=== PATIENT | male | born 1960 | race Caucasian/White ===

== ENCOUNTER 2024-05-15 08:23 | Outpatient (AMB) | payer MEDICARE, OTHER, SELFPAY ==
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
[2024-05-15 08:26] VITALS: BP 128/74; PULSE 86; O2SAT 97; BMI 27.5
== END 2024-05-15 09:29 | disposition home or self-care (01) ==
PROVIDERS: PCP Internal Medicine; Visit Provider Psychiatry & Neurology Neurology
DX: M79.604 Pain in right leg (principal); M79.605 Pain in left leg; R20.2 Paresthesia of skin; R25.2 Cramp and spasm; E11.9 Type 2 diabetes mellitus without complications
CPT/HCPCS: 99204

== ENCOUNTER → 2024-05-15 08:23 | Outpatient (BNVA) | payer MEDICARE, OTHER, SELFPAY | PROVIDERS: PCP Internal Medicine; Visit Provider Psychiatry & Neurology Neurology | DX: M79.604 Pain in right leg (principal); M79.605 Pain in left leg; R20.2 Paresthesia of skin; R25.2 Cramp and spasm; E11.9 Type 2 diabetes mellitus without complications | CPT/HCPCS: 99202 ==

== ENCOUNTER 2024-05-17 07:57 | Outpatient (REF) | payer MEDICARE, OTHER, SELFPAY ==
[2024-05-17 10:19] LABS: MANUAL DIFF FLAG NO
[2024-05-17 10:33] LABS: Basophils Percent Auto 0.4 % (0-2); Eosinophils Absolute Auto 0.1 X10*3/uL (0.0-0.4); Hematocrit 47.4 % (42.0-52.0); Hemoglobin 15.7 g/dl (14.0-18.0); Imm Gran Abs Auto 0.04 X10*3/uL (0.00-0.03); Imm Gran Pct Auto 0.5 % (0.0-0.4); Lymphocytes Absolute Auto 1.4 X10*3/uL (1.2-4.9); Lymphocytes Percent Auto 17.3 % (20-40); Mean Corpuscular HGB Conc 33.1 g/dl (31.0-36.0); Mean Corpuscular Hemoglobin 27.9 pg (27.0-33.0); Mean Corpuscular Volume 84.3 fL (80.0-98.0); Mean Platelet Volume 9.4 fL (9.4-12.4); Monocytes Absolute Auto 0.7 X10*3/uL (0.1-1.2); Monocytes Percent Auto 8.2 % (2-11); Neutrophils Absolute Auto 5.8 x10*3/uL (2.0-8.3); Neutrophils Percent Auto 72.6 % (45-73); Platelet Count 294 X10*3/uL (160-400); Red Blood Count 5.62 X10*6/uL (4.60-5.80); Red Cell Distribution Width 13.7 % (11.0-16.0)
[2024-05-17 11:03] LABS: Alanine Aminotransferase 26 U/L (0-40); Albumin Level 4.2 g/dL (3.5-5.0); Alkaline Phosphatase 51 U/L (39-117); Anion Gap 14 (12-20); Aspartate Amino Transferase 23 U/L (5-37); Bilirubin Total 0.6 mg/dL (0.0-1.0); Blood Urea Nitrogen 13 mg/dL (9-16); Calcium 9.5 mg/dL (8.4-10.2); Carbon Dioxide 23 mmol/L (22-29); Chloride 106 mmol/L (96-108); Estimated Glomerular Filt Rate > 60; Glucose Random 220 mg/dL (60-115); Potassium 4.4 mmol/L (3.3-5.1); Sodium 139 mmol/L (135-145); TSH reflex Free T4 0.59 uIU/mL (0.32-4.0); Total Protein 7.4 g/dL (6.5-8.0)
[2024-05-17 14:23] LABS: Folate 8.1 ng/mL (> or = 4.0); Vitamin B12 321 pg/mL (200-900)
[2024-05-22 15:13] LABS: Vitamin D 25-OH, D2 <4 ng/mL; Vitamin D 25-OH, D3 23 ng/mL; Vitamin D 25-OH, Total 23 ng/mL (30-100)
== END 2024-05-17 07:58 | disposition home or self-care (01) ==
LOC: HO.HMGCLDS 07:57
PROVIDERS: PCP Internal Medicine; Visit Provider Nurse Practitioner Family
DX: R20.2 Paresthesia of skin (principal); R25.2 Cramp and spasm; M79.605 Pain in left leg; M79.604 Pain in right leg
CPT/HCPCS: 36415; 80053; 82306; 82550; 82607; 82746; 84443; 85025

== ENCOUNTER 2024-06-06 07:38 | Outpatient (REF) | payer MEDICARE, OTHER, SELFPAY ==
--- NOTE | 2024-06-06 07:47 | EMG_ITS ---
PROCEDURE: Bilateral tibial and peroneal motor studies were performed. Bilateral superficial peroneal, sural, and median and lateral plantar mixed studies were performed. Tibial H reflexes were obtained and paraspinal muscles were tested with a needle. IMPRESSION: Txifgxsk-ry-czlyfd sensory and motor peripheral neuropathy with features of axonal loss and demyelination. Appropriate investigations are recommended to rule out treatable type of demyelinating neuropathy. MD FARIHA Cervantes/DEIDRE / [phone]
== END 2024-06-06 07:39 | disposition home or self-care (01) ==
LOC: HO.NEURO 07:38
PROVIDERS: PCP Internal Medicine; Visit Provider Nurse Practitioner Family
DX: R20.2 Paresthesia of skin (principal); M79.604 Pain in right leg; M79.605 Pain in left leg
CPT/HCPCS: 95886; 95913

== ENCOUNTER 2024-06-21 08:20 | Outpatient (REF) | payer MEDICARE, OTHER, SELFPAY ==
[2024-06-21 11:31] LABS: Estimated Average Glucose 183 mg/dL
[2024-06-21 11:53] LABS: Erythrocyte Sedimentation Rate 7 MM/HR (0-15)
[2024-06-21 12:37] LABS: Rheumatoid Factor < 13.0 IU/mL (<15.0)
[2024-06-21 12:38] LABS: HIV AB/AG Nonreactive (Nonreactive); HIV Num 1 0.05 S/CO (0.00-0.99)
[2024-06-21 13:10] LABS: Folate 6.4 ng/mL (> or = 4.0); Vitamin B12 442 pg/mL (200-900)
[2024-06-22 09:39] LABS: CRP High Sensitivity 0.6 mg/L
[2024-06-23 10:18] LABS: Prot Elec - Albumin 4.2 g/dL (3.8-4.8); Prot Elec - Alpha1 0.2 g/dL (0.2-0.3); Prot Elec - Beta 1 0.5 g/dL (0.4-0.6); Prot Elec - Beta 2 0.4 g/dL (0.2-0.5); Prot Elec - Total Protein 7.2 g/dL (6.1-8.1)
[2024-06-26 08:43] LABS: Methylmalonic Acid 87 nmol/L (69-390)
[2024-06-27 20:08] LABS: Anti Nuclear Antibody Screen NEGATIVE (NEGATIVE)
== END 2024-06-21 08:21 | disposition home or self-care (01) ==
LOC: HO.HMGCLDS 08:20
PROVIDERS: PCP Internal Medicine; Visit Provider Nurse Practitioner Family
DX: G62.89 Other specified polyneuropathies (principal); E11.9 Type 2 diabetes mellitus without complications; I10 Essential (primary) hypertension; R20.2 Paresthesia of skin; R25.2 Cramp and spasm; R79.89 Other specified abnormal findings of blood chemistry
CPT/HCPCS: 36415; 82550; 82607; 82746; 83036; 83090; 83921; 84165; 85652; 86038; 86141; 86431; 87389

== ENCOUNTER 2024-06-24 10:05 | Outpatient (REF) | payer MEDICARE, OTHER, SELFPAY ==
[2024-06-28 08:14] LABS: Creatinine, 24Hr Urine 1.57 g/24 h (0.50-2.15); PEU-PROT/CRE Ratio mg/mg 0.107 (<0.100); PEU24-Albumin Urine 100 %; PEU24-Alpha 1 Globulin 0 %; PEU24-Alpha 2 Globulin 0 %; PEU24-Beta Globulin 0 %; PEU24-Gamma Globulin 0 %; Total Protein 24Hr Urine 168 mg/24 h (<150); Total Protein/Creat Ratio 24h 107 mg/g creat (<100)
== END 2024-06-24 10:06 | disposition home or self-care (01) ==
LOC: HO.LNP 10:05
PROVIDERS: Visit Provider Nurse Practitioner Family
DX: G62.89 Other specified polyneuropathies (principal); E11.9 Type 2 diabetes mellitus without complications; I10 Essential (primary) hypertension; R20.2 Paresthesia of skin; R25.2 Cramp and spasm; R79.89 Other specified abnormal findings of blood chemistry
CPT/HCPCS: 82570; 84156; 84166

== ENCOUNTER 2024-06-25 | Outpatient (REF) | payer MEDICARE, OTHER, SELFPAY ==
[2024-06-29 03:24] LABS: Arsenic, 24H Urine 40 mcg/L (<=80); Cadmium, 24H Urine 0.5 mcg/L (<=5.0); Lead, 24H Urine <10 mcg/L (<80); Mercury, 24H Urine <4 mcg/L (<=20)
== END 2024-06-25 00:01 | disposition home or self-care (01) ==
LOC: HO.LNP
PROVIDERS: Visit Provider Nurse Practitioner Family
DX: G62.89 Other specified polyneuropathies (principal); E11.9 Type 2 diabetes mellitus without complications; I10 Essential (primary) hypertension; R20.2 Paresthesia of skin; R25.2 Cramp and spasm; R79.89 Other specified abnormal findings of blood chemistry
CPT/HCPCS: 82175; 82300; 83655; 83825

== ENCOUNTER 2024-12-04 09:56 | Outpatient (AMB) | payer MEDICARE, OTHER, SELFPAY ==
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
--- OUTSIDE RECORDS SUMMARY | 2024-12-04 10:31 | XMS_ITS | Clinical Summary ---
Author Organization [facility] [address] [place] [address] [place] [phone] Phone Care Team Providers Care Bowling Alley Mechanic Name Role Phone Andrew Lopez MD Primary Care Provider [phone] Allergies No known active allergies Medications Medication Sig Dispensed Refills Start Date End Date Status aspirin 81 mg EC tablet Take 1 Tab by mouth daily. 05/13/2020 Active flash glucose sensor (FREESTYLE SELENE 2 SENSOR [facility]) Place 1 Applicator onto the skin every 14 days. USE DIRECTED AND CHANGE EVERY 14 DAYS. 01/06/2024 Active flash glucose scanning reader (FREESTYLE SELENE 2 READER [facility]) 1 Kit by Does not apply route daily. Dx Code E11.69 03/07/2024 Active blood sugar diagnostic (CONTOUR NEXT TEST STRIPS [facility]) USE TO TEST BLOOD SUGARS TWICE DAILY. Dx Code E11.69 01/13/2024 Active insulin glargine (Lantus Solostar U-100 Insulin) 100 unit/mL (3 mL) injection pen Inject 30 Units into the skin daily. 07/18/2024 Active insulin lispro (HumaLOG KwikPen Insulin) 100 unit/mL injection pen Before meals as directed (5 unit for small meal, 8 units for medium meal, 10 units for large meal) per sliding scale three times a day, up to 45 units daily. 07/18/2024 Active lisinopriL (PRINIVIL,ZESTRIL) 10 mg tablet Take 1 Tablet by mouth daily. 05/12/2024 Active metFORMIN (GLUCOPHAGE) 1,000 mg tablet Take 1 Tablet by mouth 2 times daily (with meals). 05/12/2024 Active FA/mv,Ca,iron,min/lyc opene/lut (MULTIVITAL ORAL) Take by mouth. Active glucose blood test strip USE TO TEST BLOOD SUGAR TWICE DAILY 08/20/2022 Active simvastatin (ZOCOR) 20 mg tablet Take 1 Tablet by mouth at bedtime. 05/12/2024 Active BD Belle 2nd Gen Pen Needle 32 gauge x 32 needleIndications:Typ e 2 diabetes mellitus with other specified complication (CMS/HCC) USE DIRECTED 4 TIMES A DAY 400 each 1 10/09/2024 Active Active Problems Problem Noted Date Diagnosed Date Microalbuminuria 05/13/2023 Pure hypercholesterolemia 01/10/2018 Type II diabetes mellitus with renal manifestati ons 08/14/2013 HTN (hypertension), benign 05/11/2013 Encounters Date Type Department Care Team Description 11/16/2024 2:30 PM EST Office Visit Adult Medicine [address] [phone] Andrew Lopez MD HTN (hypertension), benign (Primary Dx); Type 2 diabetes mellitus with other diabetic kidney complication, with long-term current use of insulin (CMS/HCC); Pure hypercholesterolemia; Microalbuminuria; Pain in both feet; Change in nail appearance; Erectile dysfunction, unspecified erectile dysfunction type 11/14/2024 9:30 AM EST Office Visit Endocrinology - [address] [phone] Juan Antonio Flores MD Type 2 diabetes mellitus with other diabetic kidney complication, with long-term current use of insulin (CMS/HCC) (Primary Dx) from Last 3 Months Immunizations Name Administration Dates Next Due Influenza Quadravalent, MDCK , 0.5ml, preservative free (Flucelvax) 6mo and older 08/31/2019,08/22/2018 Influenza trivalent, 0.5mL ( Fluad) 65yo and older 11/12/2023 Influenza trivalent, 0.5mL, preservative free (Fluarix; FluLaval; Fluzone) ages 6mo and older (Afluria) 3 years and older 07/15/2015,10/15/2014,08/14/2013 Pneumococcal conjugate 20 va lent (Prevnar 20, PCV 20) 2mo and older 11/12/2023 Tdap Tetanus diptheria acell ular pertussis (Boostrix; Adacel) 7yo and older 05/11/2013 Surgical History Surgery Date Site/Laterality Comments TONSILLECTOMY PROCEDURE: HISTORICAL TONSILLECTOMY Medical History Medical History Date Comments HTN (hypertension), benign 05/11/2013 DX:HT N (hypertension), benign Type 2 diabetes mellitus, 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, with renal complications 08/14/2013 DX:Type 2 diabetes mellitus, uncontrolled, with renal complications Microalbuminuria due to type 2 diabetes mellitus (CMS/HCC) 05/31/2017 DX:Microalbuminuria due to t ype 2 diabetes mellitus (HCC) Back pain DX:Back pain Lower abdominal pain DX:Lower ab dominal pain Change in bowel habits DX:Change in bowel habits Family History Medical History Relation Name Comments Lung cancer Father Diabetes Mother Relation Name Status Comments Father Mother Social History Tobacco Use Types Packs/Day Years Used Date Smoking Tobacco: Former Cigarettes Q uit: 10/31/2005 Smokeless Tobacco: Never Tobacco Cessation:Counseling Given: Not Answered Alcohol Use Standard Drinks/Week Comments No 0 (1 standard drink = 0.6 oz pur e alcohol) Sex and Gender Information Value Date Recorded Sex Assigned at Not on file Gender Identity Not on file Sexual Orientation Not on file Job Start Date Occupation Industry Not on file Not on file Not on file Obstetrics History Last Filed Vital Signs Vital Sign Reading Time Taken Comments Blood Pressure 118/64 11/16/2024 2:27 PM EST Pulse 72 11/16/2024 2:27 PM EST Temperature 36.6 ??C (97.8 ??F) 11/16/2024 2:27 PM ES T Respiratory Rate 16 11/16/2024 2:27 PM EST Oxygen Saturation 97% 11/14/2024 9:30 AM EST Inhaled Oxygen Concentration - - Weight 84.8 kg (187 lb) 11/16/2024 2:27 PM EST Height 175.3 cm (5' 9 ) 11/16/2024 2:27 PM EST Body Mass Index 27.62 11/16/2024 2:27 PM EST Plan of Treatment Upcoming Encounters Date Type Department Care Team ([facility] st Contact Info) Description 01/02/2025 9:45 AM EST Office Visit Endocrinology - [place] [address] [place] [phone] Juan Antonio Flores MD [address] [place] [address] 05/18/2025 1:15 PM EDT Office Visit Adult Medicine [facility] [address] [place] [address] Andrew Lopez MD [address] [place] [phone] Health Maintenance Due Date Last Done Comments Diabetes: Annual Foot Exam 01/12/1968 Diabetes: Annual Retina Eye Exam 01/12/1968 Zoster Vaccines (1 of 2) 01/12/2008 RSV Immunization Patients 60+ Years Old (1 - Risk 60-74 years 1-dose series) 2018 Depression Screening 10/10/2022 Social Influencers of Health Screening 10/10/2022 DTaP,Tdap,and Td Vaccines (2 - Td or Tdap) 05/11/2023 05/11/2013 Medicare Annual Wellness Visit 05/10/2024 05/10/2023 COVID-19 Vaccine (3 - season) 2024 03/18/2021, 02/18/2021 Influenza Vaccine (#1) 2024 , 08/31/2019, 08/22/2018, Additional history exists Falls Risk Assessment 05/12/2025 05/12/2024 Diabetes: Blood Sugar Control Test (HGBA1C) 05/16/2025 11/16/2024, 05/12/2024, 05/12/2024 Diabetes: Annual Urine Albumin-Creatinine Ratio (uACR) 11/16/2025 11/16/2024, 05/12/2024 Diabetes: Annual GFR (Glomerular Filtration Rate) 11/16/2025 11/16/2024, 05/12/2024, 05/12/2024 Hypertension/CHF/CAD Annual BMP Blood Test 11/16/2025 11/16/2024, 05/12/2024, 05/12/2024 Colorectal Cancer Screening: Colonoscopy 04/17/2029 04/17/2019 Cholesterol Screening (Lipid Panel) 11/16/2029 11/16/2024, 05/12/2024, 05/12/2024 Hepatitis C Screening Completed 08/07/2013 Abdominal Aortic Aneurysm (AAA) Screen Completed 02/04/2023 Pneumococcal Vaccine: 65+ Years Completed 11/12/2023 HIB Vaccines Aged Out No longer eligi ble based on patient's age to complete this topic HPV Vaccines Aged Out No longer eligi ble based on patient's age to complete this topic Hepatitis A Vaccines Aged Out No long er eligible based on patient's age to complete this topic Hepatitis B Vaccines Aged Out No long er eligible based on patient's age to complete this topic IPV Vaccines Aged Out No longer eligi ble based on patient's age to complete this topic MMR Vaccines Aged Out No longer eligi ble based on patient's age to complete this topic Meningococcal ACWY Vaccine Aged Out N o longer eligible based on patient's age to complete this topic RSV Immunization Patients Under 20 months Aged Out No longer eligible based on patient's age to complete this topic Varicella Vaccines Aged Out No longer eligible based on patient's age to complete this topic Procedures Procedure Name Priority Date/Time Associated Diagnosis Comments HEMOGLOBIN A1C Routine 11/16/2024 3:12 PM EST Type 2 diabetes mellitus with other diabetic kidney complication, with long-term current use of insulin ([facility]) LIPID PANEL WITH REFLEX TO DIRECT LDL Routine 11/16/2024 3:12 PM EST Pure hypercholesterolemia COMPREHENSIVE METABOLIC PANEL Routine 11/16/2024 3:12 PM EST Type 2 diabetes mellitus with other diabetic kidney complication, with long-term current use of insulin ([facility]) Pure hypercholesterolemia HTN (hypertension), benign MICROALBUMIN CREATININE URINE RATIO Routine 11/16/2024 3:12 PM EST Type 2 diabetes mellitus with other diabetic kidney complication, with long-term current use of insulin ([facility]) Microalbuminuria FALLS RISK ASSESSMENT Routine 05/12/2024 ABDOMINAL AORTIC ANEURYSM SCRREN Routine 02/04/2023 COLONOSCOPY Routine 04/17/2019 HEPATITIS C SCREENING Routine 08/07/2013 from Last 3 Months or Most Recently Relevant to Health Maintenance Results * (ABNORMAL) Lipid panel with reflex to direct LDL (11/16/2024 3:12 PM EST) Cholesterol 124 0 - 200 mg/dL LAB CHEMISTRY METHOD 11/16/2024 10:09 PM EST [facility] Triglycerides 332(H) 0 - 150 mg/dL LAB CHEMISTRY METHOD 11/16/2024 10:09 PM EST [facility] HDL 38(L) >=40 mg/dL LAB CHEMISTRY METHOD 11/16/2024 10:09 PM [facility] LDL Calculated 20 0 - 100 mg/dL LAB CHEMISTRY METHOD 11/16/2024 10:09 PM [facility] VLDL Cholesterol Rayo 66.4 mg/dL LAB CHEMISTRY METHOD 11/16/2024 10:09 PM [facility] Non HDL Chol. (LDL+VLDL) 86 <145 mg/dL LAB CHEMISTRY METHOD 11/16/2024 10:09 PM [facility] Chol/HDL Ratio 3.3 0.0 - 4.4 LAB CHEMISTRY METHOD 11/16/2024 10:09 PM [facility] Blood Venous blood specimen / Unknown Venipuncture / Unknown 11/16/2024 3:12 PM EST 11/16/2024 3:12 PM EST Andrew Lopez MD LAB BLOOD ORDERABLES [facility] [address] [place] [address], * (ABNORMAL) Microalbumin creatinine urine ratio (11/16/2024 3:12 PM EST) Creatinine, Urine 75.0 mg/dL LAB CHEMISTRY METHOD 11/16/2024 8:22 PM [facility] Microalb, Ur 49.6(H) 0.0 - 29.0 mg/L LAB CHEMISTRY METHOD 11/16/2024 8:22 PM EST [facility] Microalb/Crea t Ratio 66(H) <30 mg/g creat LAB CHEMISTRY METHOD 11/16/2024 8:22 PM EST [facility] Urine Urine specimen obtained by clean catch procedure / Unknown Non-blood Collection / Unknown 11/16/2024 3:12 PM EST 11/16/2024 3:12 PM EST Andrew Lopez MD LAB URINE ORDERABLES Performing Organization Address [facility]/ZIP Co de Phone Number [facility] [address] [place] [address], * (ABNORMAL) Hemoglobin A1c (11/16/2024 3:12 PM EST) Hemoglobin A1C 9.1(H) <6.5 % LAB CHEMISTRY METHOD 11/16/2024 8:54 PM [facility] Mean Bld Glu Estim. 214 mg/dL LAB CHEMISTRY METHOD 11/16/2024 8:54 PM [facility] Blood Venous blood specimen / Unknown Venipuncture / Unknown 11/16/2024 3:12 PM EST 11/16/2024 3:12 PM EST Andrew Lopez MD LAB BLOOD ORDERABLES Performing Organization Address City/[facility]/ZIP Co de Phone Number [facility] [address] [place] [address], [place] [phone] * (ABNORMAL) Comprehensive metabolic panel (11/16/2024 3:12 PM EST) Sodium 134 133 - 145 mmol/L LAB CHEMISTRY METHOD 11/16/2024 10:09 PM [facility] Potassium 4.7 3.5 - 5.5 mmol/L LAB CHEMISTRY METHOD 11/16/2024 10:09 PM [facility] Chloride 103 96 - 110 mmol/L LAB CHEMISTRY METHOD 11/16/2024 10:09 PM [facility] CO2 27 21 - 32 mmol/L LAB CHEMISTRY METHOD 11/16/2024 10:09 PM [facility] Anion Gap 4 3 - 11 LAB CHEMISTRY METHOD 11/16/2024 10:09 PM [facility] Glucose 367(H) 70 - 100 mg/dL LAB CHEMISTRY METHOD 11/16/2024 10:09 PM [facility] BUN 16 5 - 25 mg/dL LAB CHEMISTRY METHOD 11/16/2024 10:09 PM [facility] Creatinine 1.06 0.70 - 1.30 mg/dL LAB CHEMISTRY METHOD 11/16/2024 10:09 PM [facility] eGFR 77 >=60 mL/min/1. 73m2 LAB CHEMISTRY METHOD 11/16/2024 10:09 PM [facility] Comment:Calculation based on the??Chronic Kidney Disease Epidemiology Collaboration (CKD-EPI) equation refit??without adjustment for race. BUN/Creatinine Ratio 15.1 LAB CHEMISTRY METHOD 11/16/2024 10:09 PM [facility] Calcium 9.1 8.5 - 10.5 mg/dL LAB CHEMISTRY METHOD 11/16/2024 10:09 PM [facility] AST (SGOT) 30 10 - 42 unit/L LAB CHEMISTRY METHOD 11/16/2024 10:09 PM [facility] ALT (SGPT) 61(H) 10 - 60 unit/L LAB CHEMISTRY METHOD 11/16/2024 10:09 PM [facility] Alkaline Phosphatase 95 42 - 121 unit/L LAB CHEMISTRY METHOD 11/16/2024 10:09 PM [facility] Total Protein 7.3 6.0 - 8.0 g/dL LAB CHEMISTRY METHOD 11/16/2024 10:09 PM [facility] Albumin 4.0 3.2 - 5.0 g/dL LAB CHEMISTRY METHOD 11/16/2024 10:09 PM EST [facility] Total Bilirubin 0.3 0.0 - 1.4 mg/dL LAB CHEMISTRY METHOD 11/16/2024 10:09 PM EST [facility] Blood Venous blood specimen / Unknown Venipuncture / Unknown 11/16/2024 3:12 PM EST 11/16/2024 3:12 PM EST Andrew Lopez MD LAB BLOOD ORDERABLES [facility] [address] [place] [address], * Falls Risk Assessment (05/12/2024) [facility] Falls Risk Assessment Abstracted Historical Provider [facility] * Abdominal Aortic Aneurysm Screen (02/04/2023) [facility] Abdominal Aortic Aneurysm (AAA) Screening Abstracted Anatomical Region Laterality Modality Other [facility] Provider [facility] * Colonoscopy (04/17/2019) [facility] Colonoscopy Abstracted, No interpretation Anatomical Region Laterality Modality Other [facility] Provider [facility] * Hepatitis C Screening (08/07/2013) [facility] Hepatitis C Screening Abstracted [facility] Provider [facility] E from Last 3 Months or Most Recently Relevant to Health Maintenance Advance Directives Documents on File Type Date Recorded Patient Hat Checker Expl anation Health Care Decision (hx) 10/05/2022 AD GIBBONS DIRECTIVE Health Care Decision (hx) 10/05/2022 AD GIBBONS DIRECTIVE Health Care Decision (hx) 10/05/2022 AD GIBBONS DIRECTIVE Care Teams Bowling Alley Mechanic Relationship Specialty Start Date End Date Andrew Lopez MD [address] [place] [phone] PCP - General Internal Medicine 11/13/24
--- OUTSIDE RECORDS SUMMARY | 2024-12-04 10:31 | XMS_ITS | Encounter Summary ---
Author Organization [facility] Address [address] [place] [address] Care Team Providers Care Medical Dir Name Role Phone Andrew Lopez MD Primary Care Provider [phone] Reason for Visit * Reason Comments Blood Sugar Problem Encounter Details Date Type Department Care Team ([facility] st Contact Info) Description 11/14/2024 9:30 AM EST Office Visit Endocrinology - [place] [address] [place] [phone] Juan Antonio Flores MD [address] [place] [address] Type 2 diabetes mellitus with other diabetic kidney complication, with long-term current use of insulin ([facility]) (Primary Dx) Social History Tobacco Use Types Packs/Day Years [...] file Not on file Not on file documented as of this encounter Last Filed Vital Signs Vital Sign Reading Time Taken Comments Blood Pressure 139/67 11/14/2024 9:30 AM EST Pulse 73 11/14/2024 9:30 AM EST Temperature 36.4 ??C (97.5 ??F) 11/14/2024 9:30 AM ES T Respiratory Rate - - Oxygen Saturation 97% 11/14/2024 9:30 AM EST Inhaled Oxygen Concentration - - Weight 86.6 kg (191 lb) 11/14/2024 9:30 AM EST Height 175.3 cm (5' 9 ) 11/14/2024 9:30 AM EST Body Mass Index 28.21 11/14/2024 9:30 AM EST documented in this encounter Progress Notes * Juan Antonio Flores MD - 11/14/2024 9:30 AM EST Go up on insulin lantus to 34 units daily. Try to take pre meal insulin regularly. * Juan Antonio Flores MD - 11/14/2024 9:30 AM EST CHIEF COMPLAINT: Blood Sugar Problem IDENTIFIER: Ceferino Trejo is a 64 y.o. old male. HPI: 64 years old M, following for DM type 2. Diagnosed since 10-15 years. His and he has been under stress. Currently on Insulin lantus at 30 unit daily Metformin 1000 mg BID, HL 10 units AC plus SS. On radha 2 now, data shows Average at 224, in target 13 %, above 87%, below 0%. Numbers are much higher then before. He admits that short acting insulin might forget. Ozempic was prescribed not covered. ROS: As noted in HPI PAST MEDICAL HISTORY: Patient Active Problem List Diagnosis Date Noted Microalbuminuria 05/13/2023 Pure hypercholesterolemia 01/10/2018 Type II diabetes mellitus with renal manifestations ([facility]) 08/14/2013 HTN (hypertension), benign 05/11/2013 Past Surgical History: Procedure Laterality Date TONSILLECTOMY PROCEDURE: HISTORICAL TONSILLECTOMY SOCIAL HISTORY: Social History Tobacco Use Smoking status: Former Current packs/day: 0.00 Types: Cigarettes Quit date: 10/31/2005 Years since quittin.0 Smokeless tobacco: Never Substance Use Topics Alcohol use: No FAMILY HISTORY: Family History Problem Relation Name Age of Onset Lung cancer Father Diabetes Mother Family Status Relation Name Status Father (Not Specified) Mother (Not Specified) No partnership data on file MEDICATIONS DISCONTINUED/REORDERED: There are no discontinued medications. ACTIVE MEDICATIONS: Outpatient Medications Marked as Taking for the 11/14/24 encounter (Office Visit) with Juan Antonio Flores MD Medication Sig Dispense Refill aspirin 81 mg EC tablet Take 1 Tab by mouth daily. BD Belle 2nd Gen Pen Needle 32 gauge x 5/32 needle USE DIRECTED 4 TIMES A DAY 400 each 1 blood sugar diagnostic (CONTOUR NEXT TEST STRIPS [facility]) USE TO TEST BLOOD SUGARS TWICE DAILY. Dx Code E11.69 FA/mv,Ca,iron,min/lycopene/lut (MULTIVITAL ORAL) Take by mouth. flash glucose scanning reader (FREESTYLE RADHA 2 READER [facility]) 1 Kit by Does not apply route daily. Dx Code E11.69 flash glucose sensor (FREESTYLE RADHA 2 SENSOR [facility]) Place 1 Applicator onto the skin every 14 days. USE DIRECTED AND CHANGE EVERY 14 DAYS. glucose blood test strip USE TO TEST BLOOD SUGAR TWICE DAILY insulin glargine (Lantus Solostar U-100 Insulin) 100 unit/mL (3 mL) injection pen Inject 30 Units into the skin daily. insulin lispro (HumaLOG KwikPen Insulin) 100 unit/mL injection pen Before meals as directed (5 unitfor small meal, 8 units for medium meal, 10 units for large meal) per sliding scale three times a day, up to 45 units daily. lisinopriL (PRINIVIL,ZESTRIL) 10 mg tablet Take 1 Tablet by mouth daily. metFORMIN (GLUCOPHAGE) 1,000 mg tablet Take 1 Tablet by mouth 2 times daily (with meals). simvastatin (ZOCOR) 20 mg tablet Take 1 Tablet by mouth at bedtime. ALLERGIES: No Known Allergies PHYSICAL EXAM: Visit Vitals BP 139/67 Pulse 73 Temp 36.4 ??C (97.5 ??F) (Temporal) Ht 1.753 m (69 ) Wt 86.6 kg (191 lb) SpO2 97% BMI 28.21 kg/m?? Smoking Status Former BSA 2.03 m?? APPEARANCE: Alert and in no acute distress EYES: EOMI. No resp distress NEURO: Awake, alert LABS: Lab Results Component Value Date HGBA1C 8.7 (A) 05/12/2024 CHOL 124 05/12/2024 LDL 60 05/12/2024 HDL 45 05/12/2024 TRIG 96 05/12/2024 IMPRESSION: 1. Type 2 diabetes mellitus with other diabetic kidney complication, with long- term current use of insulin ([facility]) PLAN: Had a detailed discussion, numbers are higher then before. Asked to go up on the insulin lantus to 34 units daily. Take pre meal insulin regularly. Have discussed the importance of taking medication regularly. All questions answered. Medication and lab orders: No orders of the defined types were placed in this encounter. Other orders: None Juan Antonio Flores MD on 11/14/2024 at 9:51 AM EST documented in this encounter Plan of Treatment Upcoming Encounters Date Type Department Care Team (Late st Contact Info) Description 01/02/2025 9:45 AM EST Office Visit [address] [phone] Juan Antonio Flores MD [address] [place] [address] 05/18/2025 1:15 PM EDT Office Visit Adult Medicine [address] [phone] Andrew Lopez MD [address] [place] [address] documented as of this encounter Visit Diagnoses Diagnosis Type 2 diabetes mellitus with other diabetic kidney complication, with long-term current use of insulin ([facility])- Primary documented in this encounter Care Teams Medical Dir Relationship Specialty Start Date End Date Andrew Lopez MD [address] [place] [phone] PCP - General Internal Medicine 11/13/24 documented as of this encounter
--- OUTSIDE RECORDS SUMMARY | 2024-12-04 10:31 | XMS_ITS | Encounter Summary ---
Author Organization [facility] Address [id number] [place] [phone] Care Team Providers Care Steamer Operator Name Role Phone Andrew Lopez MD Primary Care Provider [phone] Reason for Referral * Consultation (Routine) - Authorized Specialty Diagnoses / Procedures Referred By Fawad morton Referred To Contact Urology Diagnoses Erectile dysfunction, unspecified erectile dysfunction type Andrew Lopez MD [address] [place] [phone] Referral ID Status Reason Start Date Expiration Date Visits Requested Visits Authorized [id number] Authorized Specialty Services Required 11/16/2024 11/16/2025 1 1 * Consultation (Routine) - Authorized Specialty Diagnoses / Procedures Referred By Fawad morton Referred To Contact Podiatry Diagnoses Pain in both feet Change in nail appearance Andrew Lopez MD [address] [place] [phone] Referral ID Status Reason Start Date Expiration Date Visits Requested Visits Authorized [id number] Authorized Specialty Services Required 11/16/2024 11/16/2025 1 1 Reason for Visit * Reason Comments Follow-up Encounter Details Date Type Department Care Team ([facility] st Contact Info) Description 11/16/2024 2:30 PM EST Office Visit Adult Medicine [address] [phone] Andrew Lopez MD [address] [place] [phone] HTN (hypertension), benign (Primary Dx); Type 2 diabetes mellitus with other diabetic kidney complication, with long-term current use of insulin ([facility]); Pure hypercholesterolemia ; Microalbuminuria; Pain in both feet; Change in nail appearance; Erectile dysfunction, unspecified erectile dysfunction type Social History Tobacco Use Types Packs/Day Years [...] 16 11/16/2024 2:27 PM EST Oxygen Saturation - - Inhaled Oxygen Concentration - - Weight 84.8 kg (187 lb) 11/16/2024 2:27 PM EST Height 175.3 cm (5' 9 ) 11/16/2024 2:27 PM EST Body Mass Index 27.62 11/16/2024 2:27 PM EST documented in this encounter Progress Notes * Andrew Lopez MD - 11/16/2024 2:30 PM EST CHIEF COMPLAINT: Follow-up IDENTIFIER: Ceferino Trejo is a 64 y.o. old male. HPI: Pt with diabetes Pt follows with endo seen last 11/2024 Lantus increased to 34 Pt currently is on lantus 34 Units,metformin 1gm po bid and lispro ssi Pt notes compliance has improved pt cares for his mom and when he gives her her night time meds he is taking the lantus Pt last a1c 8.7 05/2024 up form previous value of 7.6 Pt has cgm 30 days 230 Pt last ldl 60 05/2024 Pt moderate intensity statin therapy Pt last microalb/cr ratio 34 05/2024 down from previous value of 44.1 11/2023 Is on acei gfr last 77 05/2024 F/u with endo in 12/2024 Pt is up to date with ophthalmology w/o Pt notes burning sensation in both feet ? One year Pt notes hit nail left nail > one year color change Pt notes ED > 2 year pt is not able to achieve. Pt notes libido is normal Pt notes not getting am erection. Pt with htn pt is on lisinopril 10mg bp today at goal at 118/64 Pt Denies light head/dizziness , shortness of breath , chest pain Pt denies cough ROS: GENERAL: Negative for malaise, significant weight loss and fever RESPIRATORY: No cough, wheezing or shortness of breath CARDIOVASCULAR: Negative for chest pain, leg swelling and palpitations : See HPI SKIN: See HPI PAST MEDICAL HISTORY: Patient Active Problem List Diagnosis Date Noted Microalbuminuria 05/13/2023 Pure hypercholesterolemia 01/10/2018 Type II diabetes mellitus with renal manifestations ([facility]) 08/14/2013 HTN (hypertension), benign 05/11/2013 SOCIAL HISTORY: Social History Tobacco Use Smoking status: Former Current packs/day: 0.00 Types: Cigarettes Quit date: 10/31/2005 Years since quittin.0 Smokeless tobacco: Never Substance Use Topics Alcohol use: No FAMILY HISTORY: Family Status Relation Name Status Father (Not Specified) Mother (Not Specified) No partnership data on file Family History Problem Relation Name Age of Onset Lung cancer Father Diabetes Mother ACTIVE MEDICATIONS: Outpatient Medications Marked as Taking for the 11/16/24 encounter (Office Visit) with Andrew Lopez MD Medication Sig Dispense Refill aspirin 81 mg EC tablet Take 1 Tab by mouth daily. BD Belle 2nd Gen Pen Needle 32 gauge x 5/32 needle USE DIRECTED 4 TIMES A DAY 400 each 1 blood sugar diagnostic (CONTOUR NEXT TEST STRIPS [facility] USE TO TEST BLOOD SUGARS TWICE DAILY. Dx Code E11.69 FA/mv,Ca,iron,min/lycopene/lut (MULTIVITAL ORAL) Take by mouth. flash glucose scanning reader (FREESTYLE SELENE 2 READER [facility] 1 Kit by Does not apply route daily. Dx Code E11.69 flash glucose sensor (FREESTYLE SELENE 2 SENSOR [facility] Place 1 Applicator onto the skin every 14 days. USE DIRECTED AND CHANGE EVERY 14 DAYS. glucose blood test strip USE TO TEST BLOOD SUGAR TWICE DAILY insulin lispro (HumaLOG KwikPen Insulin) 100 unit/mL [...] 1 Tablet by mouth at bedtime. ALLERGIES: Patient has no known allergies. PHYSICAL EXAM: Blood pressure 118/64, pulse 72, temperature 36.6 ??C (97.8 ??F), temperature source Temporal, resp. rate 16, height 1.753 m (69 ), weight 84.8 kg (187 lb). Body mass index is 27.62 kg/m??. Plan is deferred until next visit APPEARANCE: Alert and in no acute distress EYES: PERRLA, conjunctiva and sclera normal HEART: RRR with normal S1 and S2, no murmurs, no gallops, no JVD appreciated LUNG: clear to auscultation bilaterally EXTREMITIES: Extremities warm and well perfused without clubbing, cyanosis, or edema LABS: none IMPRESSION: 1. HTN (hypertension), benign 2. Type 2 diabetes mellitus with other diabetic kidney complication, with long- term current use of insulin ([facility]) 3. Pure hypercholesterolemia 4. Microalbuminuria 5. Pain in both feet 6. Change in nail appearance 7. Erectile dysfunction, unspecified erectile dysfunction type PLAN: Pt with diabetes pt saw endo yesterday last A1c up to 8.7 lantus was increased to 34 units. I will update A1c today. Last microalb/cr ratio decreased pt is on acei. Will update microalbumin today. Ptfollows with endo next appointment 12/2024. Pt with burning foot pain and toenail changes will referto Podiatry pt up to date with Ophthalmology Pt with htn well controlled pt will continue current regimen of lisinopril will check bmp to assessrenal function and lytes pt with high cholesterol on a statin will check lipid profile and lft's last ldl < 70 pt to continue current statin therapy Pt notes ED not getting am erection this likely is neurological given his diabetes will refer to urology Pt to f/u with me in 6 months Myself and my colleagues have maintained a long-term, longitudinal relationship with this patient, overseeing care of chronic conditions including diabetes,hypertension and high cholesterol. This care relationship has significantly influenced my decision making and treatment plans during today's encounter. Orders Placed This Encounter Procedures Hemoglobin A1c Lipid panel with reflex to direct LDL Comprehensive metabolic panel Microalbumin creatinine urine ratio Ambulatory referral to Podiatry Ambulatory referral to Urology ADDITIONAL ORDERS: None Andrew Lopez MD on 11/16/2024 at 2:41 PM EST documented in this encounter Plan of Treatment Upcoming Encounters Date Type Department Care Team (Late st Contact Info) Description 01/02/2025 9:45 AM EST Office Visit [address] [phone] Juan Antonio Flores MD [address] [place] [phone] 05/18/2025 1:15 PM EDT Office Visit Adult Medicine [address] [phone] Andrew Lopez MD [address] [place] [address] [phone] Scheduled Referrals Name Type Priority Associated Diagnoses Order Schedule Ambulatory referral to Podiatry Outpatient Referral Routine Pain in both feet Change in nail appearance 1 Occurrences starting 11/16/2024 until 11/16/2025 Ambulatory referral to Urology Outpatient Referral Routine Erectile dysfunction, unspecified erectile dysfunction type 1 Occurrences starting 11/16/2024 until 11/16/2025 documented as of this encounter Results * (ABNORMAL) Microalbumin creatinine urine ratio (11/16/2024 3:12 PM EST) Creatinine, Urine 75.0 mg/dL LAB CHEMISTRY METHOD 11/16/2024 8:22 PM EST [facility] Microalb, Ur 49.6(H) 0.0 - 29.0 mg/L LAB CHEMISTRY METHOD 11/16/2024 8:22 PM [facility] Microalb/Crea t Ratio 66(H) <30 mg/g creat LAB CHEMISTRY METHOD 11/16/2024 8:22 PM [facility] Urine Urine specimen obtained by clean catch procedure / Unknown Non-blood Collection / Unknown 11/16/2024 3:12 PM EST 11/16/2024 3:12 PM EST Andrew Lopez MD LAB URINE ORDERABLES [facility] [address] [place] [address], * (ABNORMAL) Comprehensive metabolic panel (11/16/2024 3:12 PM EST) Sodium 134 133 - 145 mmol/L LAB CHEMISTRY METHOD 11/16/2024 10:09 PM [facility] Potassium 4.7 3.5 - 5.5 mmol/L LAB CHEMISTRY METHOD 11/16/2024 10:09 PM [facility] Chloride 103 96 - 110 mmol/L LAB CHEMISTRY METHOD 11/16/2024 10:09 PM [facility] CO2 27 21 - 32 mmol/L LAB CHEMISTRY METHOD 11/16/2024 10:09 PM [facility] Anion Gap 4 3 - 11 LAB CHEMISTRY METHOD 11/16/2024 10:09 PM [facility] Glucose 367(H) 70 - 100 mg/dL LAB CHEMISTRY METHOD 11/16/2024 10:09 PM [facility] BUN 16 5 - 25 mg/dL LAB CHEMISTRY METHOD 11/16/2024 10:09 PM [facility] Creatinine 1.06 0.70 - 1.30 mg/dL LAB CHEMISTRY METHOD 11/16/2024 10:09 PM [facility] eGFR 77 >=60 mL/min/1. 73m2 LAB CHEMISTRY METHOD 11/16/2024 10:09 PM [facility] Comment:Calculation based on the??Chronic Kidney Disease Epidemiology Collaboration (CKD-EPI) equation refit??without adjustment for race. BUN/Creatinine Ratio 15.1 LAB CHEMISTRY METHOD 11/16/2024 10:09 PM [facility] Calcium 9.1 8.5 - 10.5 mg/dL LAB CHEMISTRY METHOD 11/16/2024 10:09 PM [facility] AST (SGOT) 30 10 - 42 unit/L LAB CHEMISTRY METHOD 11/16/2024 10:09 PM [facility] ALT (SGPT) 61(H) 10 - 60 unit/L LAB CHEMISTRY METHOD 11/16/2024 10:09 PM [facility] Alkaline Phosphatase 95 42 - 121 unit/L LAB CHEMISTRY METHOD 11/16/2024 10:09 PM [facility] Total Protein 7.3 6.0 - 8.0 g/dL LAB CHEMISTRY METHOD 11/16/2024 10:09 PM [facility] Albumin 4.0 3.2 - 5.0 g/dL LAB CHEMISTRY METHOD 11/16/2024 10:09 PM [facility] Total Bilirubin 0.3 0.0 - 1.4 mg/dL LAB CHEMISTRY METHOD 11/16/2024 10:09 PM [facility] Blood Venous blood specimen / Unknown Venipuncture / Unknown 11/16/2024 3:12 PM EST 11/16/2024 3:12 PM EST Andrew Lopez MD LAB BLOOD ORDERABLES [facility] [address] [place] [address], * (ABNORMAL) Lipid panel with reflex to direct LDL (11/16/2024 3:12 PM EST) Cholesterol 124 0 - 200 mg/dL LAB CHEMISTRY METHOD 11/16/2024 10:09 PM [facility] Triglycerides 332(H) 0 - 150 mg/dL LAB CHEMISTRY METHOD 11/16/2024 10:09 PM [facility] HDL 38(L) >=40 mg/dL LAB CHEMISTRY METHOD 11/16/2024 10:09 PM [facility] LDL Calculated 20 0 - 100 mg/dL LAB CHEMISTRY METHOD 11/16/2024 10:09 PM EST [facility] VLDL Cholesterol Rayo 66.4 mg/dL LAB CHEMISTRY METHOD 11/16/2024 10:09 PM [facility] Non HDL Chol. (LDL+VLDL) 86 <145 mg/dL LAB CHEMISTRY METHOD 11/16/2024 10:09 PM [facility] Chol/HDL Ratio 3.3 0.0 - 4.4 LAB CHEMISTRY METHOD 11/16/2024 10:09 PM [facility] Blood Venous blood specimen / Unknown Venipuncture / Unknown 11/16/2024 3:12 PM EST 11/16/2024 3:12 PM EST Andrew Lopez MD LAB BLOOD ORDERABLES [facility] [address] [place] [address], * (ABNORMAL) Hemoglobin A1c (11/16/2024 3:12 PM EST) Hemoglobin A1C 9.1(H) <6.5 % LAB CHEMISTRY METHOD 11/16/2024 8:54 PM EST [facility] Mean Bld Glu Estim. 214 mg/dL LAB CHEMISTRY METHOD 11/16/2024 8:54 PM [facility] Blood Venous blood specimen / Unknown Venipuncture / Unknown 11/16/2024 3:12 PM EST 11/16/2024 3:12 PM EST Andrew Lopez MD LAB BLOOD ORDERABLES [facility] ([facility] [address] [place] [address], documented in this encounter Visit Diagnoses Diagnosis HTN (hypertension), benign- Primary Essential hypertension, benign Type 2 diabetes mellitus with other diabetic kidney complication, with long-term current use of insulin ([facility]) Pure hypercholesterolemia Microalbuminuria Proteinuria Pain in both feet Change in nail appearance Erectile dysfunction, unspecified erectile dysfunction type documented in this encounter Care Teams Steamer Operator Relationship Specialty Start Date End Date Andrew Lopez MD [address] [place] [phone] PCP - General Internal Medicine 11/13/24 documented as of this encounter
[2024-12-04 10:32] VITALS: BP 110/80; PULSE 91; O2SAT 95; BMI 28.4
== END 2024-12-04 11:34 | disposition home or self-care (01) ==
PROVIDERS: PCP Internal Medicine; Visit Provider Nurse Practitioner Family
DX: G62.89 Other specified polyneuropathies (principal); R06.83 Snoring; R53.83 Other fatigue; G47.9 Sleep disorder, unspecified; R20.2 Paresthesia of skin; R25.2 Cramp and spasm; E11.9 Type 2 diabetes mellitus without complications
CPT/HCPCS: 99214

== ENCOUNTER → 2024-12-04 09:56 | Outpatient (BNVA) | payer MEDICARE, OTHER, SELFPAY | PROVIDERS: PCP Internal Medicine; Visit Provider Nurse Practitioner Family | DX: G62.89 Other specified polyneuropathies (principal); G47.9 Sleep disorder, unspecified; R06.83 Snoring; R53.83 Other fatigue; R20.2 Paresthesia of skin; R25.2 Cramp and spasm; E11.9 Type 2 diabetes mellitus without complications | CPT/HCPCS: 99212 ==